=== PATIENT | female | born 1945 | race African-American/Black ===

== ENCOUNTER 2018-08-19 14:12 | Emergency (ER) | payer MEDICARE, MEDICAID ==
[~2018-08-19] VITALS: Ht 162.6 cm; Wt 100.2 kg
--- NOTE | 2018-08-19 14:19 | Emergency Room Report ---
History of Present Illness General Chief Complaint: Multiple Trauma/Fall Source: Patient Present Illness HPI Patient is a 73-year-old female who presented after right shoulder pain after a fall. Patient reportedly had fallen from bed last night. Patient was noted to have increased swelling and discomfort to the right upper extremity. Patient did not have any loss of consciousness. Patient was sent in from [facility] for evaluation.Patient is normally somewhat ambulatory and was able to stand up from her wheelchair. Allergies: Coded Allergies: No Known Allergies (Unverified , 08/19/18) Patient History Past Medical History: see triage record Reviewed Nursing Documentation: PMH: Agreed; PSxH: Agreed Review of Systems All Other Systems: negative except mentioned in HPI Physical Exam Sp02 EP Interpretation: reviewed, normal General Appearance: normal inspection, well appearing, no apparent distress, alert, Chronically Ill Head: atraumatic ENT: normal ENT inspection, hearing grossly normal, normal voice Neck: normal inspection, full range of motion, supple, no bony tend Respiratory: normal inspection, lungs clear, normal breath sounds, no respiratory distress, no retraction, no wheezing Cardiovascular #1: regular rate, rhythm, no edema Gastrointestinal: normal inspection, normal bowel sounds, non tender, soft, no guarding, no hernia Genitourinary: no CVA tenderness Musculoskeletal: normal inspection, back normal, normal range of motion Neurologic: normal inspection, alert, oriented x3, responsive, passenger agent III-XII nml as tested, speech normal Psychiatric: normal inspection, judgement/insight normal, mood/affect normal Skin: normal inspection, normal color, no rash Medical Decision Making Diagnostic Impression: Primary Impression: Fall Additional Impression: Shoulder contusion ER Course Patient presented for a fall. Differential diagnosis include was not limited to rib fracture, head injury, pelvic fracture among others. Because of complexity of patient's case laboratory testing and imaging studies were ordered. Status: improved Disposition: [facility] Condition: Stable Christiano Barr MD Aug 19, 2018 14:19
[2018-08-19 14:25] VITALS: BP 152/82
[2018-08-19] MEDS ORDERED: Acetaminophen 500mg (ES) tab ORAL ONE (14:30)
--- NOTE | 2018-08-19 15:51 | Diagnostic Imaging Report ---
Indications: Trauma Technique: Spiral acquisitions obtained through the brain. Angled axial and coronal 5 x 5 mm slices were reconstructed. Total dose length product 1418.31 mGycm. CTDI vol(s) 70.38 mGy. Dose reduction achieved using automated exposure control Comparison: None. Findings: There is age-related enlargement of the ventricles and extra axial CSF spaces. There is periventricular deep white matter low-attenuation, consistent with chronic ischemic change. 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 There is encephalomalacia of the anterior right temporal lobe. There is periventricular deep white matter low-attenuation, consistent with chronic ischemic change. There is a small lacunar infarct in the anterior basal ganglia region on the left. There is some encephalomalacia of the medial left cerebellar hemisphere. No acute intracranial hemorrhage nor edema. No mass effect nor midline shift. There is focal scalp soft tissue thickening in the right parietal region. Impression: Negative for acute intracranial bleed or mass effect Right temporal craniectomy defect, with underlying temporal encephalomalacia. Please correlate with surgical and clinical history Encephalomalacia of the medial left posterior cerebellar hemisphere, consistent with prior insult, either traumatic or ischemic Other chronic and age-related changes, as described The CT scanner at [facility] is accredited by the [employer] and the scans are performed using protocols designed to limit radiation exposure to as low as reasonably achievable to attain images of sufficient resolution adequate for diagnostic evaluation.
--- NOTE | 2018-08-19 16:14 | Diagnostic Imaging Report ---
Clinical Indication: Chest pain, trauma due to fall Technique: Spiral acquisitions obtained through the chest. No IV contrast utilized, reason not stated. Multiplanar reconstructions generated. Total dose length product 912.31 mGycm. CTDIvol(s) 21.04,26.5 mGy. Dose reduction achieved using automated exposure control Comparison: none Findings: No acute fractures. No evidence of significant soft tissue contusion. The lungs demonstrate posterior dependent atelectatic changes and generalized crowding of the bronchovascular markings. Some linear scarring or atelectasis is seen in the anterior inferior left lower lobe. There is equivocal trace pleural fluid on the right. The lungs and pleural spaces are otherwise clear. No infiltrates, masses, or nodules demonstrated.. No left pleural effusion demonstrated. The heart is borderline enlarged. There is anterior wall pericardial thickening versus fluid. There is a 10 mm nodule in the lower pole of left thyroid lobe. No axillary or supraclavicular mass or adenopathy. No hilar or mediastinal mass or adenopathy. There is a small sliding-type hiatal hernia. The esophagus is otherwise unremarkable. The included upper abdominal anatomy Impression: No acute bony or significant soft tissue trauma demonstrated. Trace right pleural effusion. No significant pulmonary abnormality demonstrated Trace anterior wall pericardial thickening versus fluid 10 mm left lower pole thyroid nodule. No further follow-up necessary Borderline cardiomegaly Incidental finding small sliding-type hiatal hernia The CT scanner at [facility] is accredited by the [employer] and the scans are performed using protocols designed to limit radiation exposure to as low as reasonably achievable to attain images of sufficient resolution adequate for diagnostic evaluation.
[2018-08-19 18:18] VITALS: BP 136/78
== END 2018-08-19 18:20 ==
LOC: EDBD 14:12 → EMR 14:25
DX: S40.011A Contusion of right shoulder, initial encounter (principal); W06.XXXA Fall from bed, initial encounter; Y92.122 Bedroom in nursing home as the place of occurrence of the external cause
CPT/HCPCS: 70450; 71250; 99284